=== PATIENT | male | born 1980 | race Hispanic/Latino ===

== ENCOUNTER 2022-02-23 14:36 | Emergency (ER) | payer BC ==
[~2022-02-23] VITALS: Ht 172.7 cm; Wt 96.6 kg
[2022-02-23 14:59] VITALS: BP 120/74
[2022-02-23] MEDS ORDERED: AMOX/CLAV 875/125MG TAB PO ONE (16:00)
[2022-02-23] MEDS ORDERED: KETOROLAC 30MG VIAL (30MG/ML) IM ONE (16:00)
[2022-02-23] MEDS ORDERED: BACITRACIN 28.4 GM OINT TP ONE (16:00)
[2022-02-23] MEDS ORDERED: AMOX1TAB16 PO (16:01)
[2022-02-23] MEDS ORDERED: NAPR500T6 PO (16:01)
== END 2022-02-23 16:17 | disposition home or self-care (01) ==
LOC: EDH 14:36
DX: S30.851A Superficial foreign body of abdominal wall, initial encounter (principal); Z98.890 Other specified postprocedural states; X58.XXXA Exposure to other specified factors, initial encounter; Y93.89 Activity, other specified; Y92.89 Other specified places as the place of occurrence of the external cause; Y99.8 Other external cause status
CPT/HCPCS: 10120; 74018; 96372; 99284; J1885